=== PATIENT | female | born 1995 | race Caucasian/White ===

== ENCOUNTER 2017-04-27 03:06 | Emergency (ER) | payer MEDICAID ==
[~2017-04-27] VITALS: Ht 152.4 cm; Wt 59.0 kg
[2017-04-27 03:20] VITALS: BP_SYST 119
--- NOTE | 2017-04-27 03:20 | NUR ---
Placed in room 08 . To gown for exam. Side rails up. Report given to PETE Arora.
--- NOTE | 2017-04-27 03:30 | NUR ---
Patient c/o pain and irritation to right eye from possible foreign body " contact" left in eye when patient fell asleep. Irrigated eye with 50 ml of NS and no evidence of foreign body produced. No acute distress noted. Will continue to monitor.
--- NOTE | 2017-04-27 04:00 | NUR ---
ER at bedside examining patient.
[2017-04-27 05:57] VITALS: BP_SYST 115
--- NOTE | 2017-04-27 05:57 | NUR ---
Patient given written and verbal discharge instructions and verbalizes understanding. ER MD discussed with patient the results and treatment provided. Patient in stable condition. ID arm band removed. Rx of Tobradex and tylenol with codeine given. Patient educated on pain management and to follow up with PMD. Pain Scale 0/10. Opportunity for questions provided and answered.
== END 2017-04-27 05:57 | disposition home or self-care (01) ==
LOC: SED 03:06
DX: S05.01XA Injury of conjunctiva and corneal abrasion without foreign body, right eye, initial encounter (principal); W22.8XXA Striking against or struck by other objects, initial encounter; Y93.89 Activity, other specified; Y92.89 Other specified places as the place of occurrence of the external cause; Y99.8 Other external cause status
CPT/HCPCS: 99283